=== PATIENT | male | born 1945 | race Caucasian/White ===

== ENCOUNTER 2021-02-06 08:00 | Outpatient (RCR) | payer OTHER, SELFPAY | END 2021-02-08 23:59 | disposition home or self-care (01) | LOC: CR 08:00 | PROVIDERS: Visit Provider Family Medicine | DX: Z51.89 Encounter for other specified aftercare (principal); I25.2 Old myocardial infarction; Z95.5 Presence of coronary angioplasty implant and graft | CPT/HCPCS: S9472 ==

== ENCOUNTER 2021-03-11 08:00 | Outpatient (RCR) | payer OTHER, SELFPAY | END 2021-03-11 23:59 | disposition home or self-care (01) | LOC: CR 08:00 | PROVIDERS: Visit Provider Family Medicine | DX: Z51.89 Encounter for other specified aftercare (principal); I25.2 Old myocardial infarction; Z95.5 Presence of coronary angioplasty implant and graft | CPT/HCPCS: S9472 ==

== ENCOUNTER 2021-04-08 08:00 | Outpatient (RCR) | payer OTHER, SELFPAY | END 2021-04-08 23:59 | disposition home or self-care (01) | LOC: CR 08:00 | PROVIDERS: Visit Provider Family Medicine | DX: Z51.89 Encounter for other specified aftercare (principal); I25.2 Old myocardial infarction; Z95.5 Presence of coronary angioplasty implant and graft | CPT/HCPCS: S9472 ==

== ENCOUNTER 2021-05-06 08:00 | Outpatient (RCR) | payer OTHER, SELFPAY | END 2021-05-09 23:59 | disposition home or self-care (01) | LOC: CR 08:00 | PROVIDERS: Visit Provider Family Medicine | DX: Z51.89 Encounter for other specified aftercare (principal); I25.2 Old myocardial infarction; Z95.5 Presence of coronary angioplasty implant and graft | CPT/HCPCS: S9472 ==

== ENCOUNTER 2021-06-06 08:00 | Outpatient (RCR) | payer SELFPAY ==
[2021-05-14 08:10] VITALS: BP 144/65; PULSE 54
[2021-05-16 08:06] VITALS: BP 134/58; PULSE 47
[2021-05-21 08:06] VITALS: BP 159/58; PULSE 52; O2SAT 98
[2021-05-23 08:17] VITALS: BP 162/59; PULSE 44
[2021-05-28 13:16] VITALS: BP 150/60; PULSE 45
[2021-05-30 08:09] VITALS: BP 138/52; PULSE 46; O2SAT 97
[2021-06-04 08:06] VITALS: BP 135/59; PULSE 46
[2021-06-06 08:13] VITALS: BP 137/58; PULSE 45
== END 2021-06-08 23:59 | disposition home or self-care (01) ==
LOC: CR 08:00
PROVIDERS: Visit Provider Internal Medicine Cardiovascular Disease
DX: R69 Illness, unspecified (principal)

== ENCOUNTER 2021-07-09 08:23 | Outpatient (RCR) | payer SELFPAY ==
[2021-06-09 00:07] VITALS: BP 137/58; PULSE 45
[2021-06-11 08:18] VITALS: BP 128/53; PULSE 42
[2021-06-13 08:10] VITALS: BP 125/51; PULSE 47
[2021-06-18 08:11] VITALS: BP 149/62; PULSE 45
[2021-06-20 08:00] VITALS: BP 141/61; PULSE 45
[2021-06-25 09:58] VITALS: BP 130/58; PULSE 49
[2021-07-02 08:13] VITALS: BP 147/62; PULSE 48
[2021-07-04 08:48] VITALS: BP 140/61; PULSE 53
[2021-07-09 08:00] VITALS: BP 139/59; PULSE 45
== END 2021-07-09 23:59 | disposition home or self-care (01) ==
LOC: CR 08:23
PROVIDERS: Visit Provider Internal Medicine Cardiovascular Disease
DX: R69 Illness, unspecified (principal)

== ENCOUNTER 2021-09-05 08:31 | Outpatient (RCR) | payer SELFPAY ==
[2021-08-13 08:26] VITALS: BP 138/57; PULSE 52
[2021-08-15 08:35] VITALS: BP 146/60; PULSE 47
[2021-08-20 08:41] VITALS: BP 138/54; PULSE 53
[2021-08-22 08:53] VITALS: BP 123/57; PULSE 52
[2021-09-03 08:09] VITALS: BP 113/70; PULSE 51
[2021-09-05 08:05] VITALS: BP 129/59; PULSE 51
== END 2021-09-08 23:59 | disposition home or self-care (01) ==
LOC: CR 08:31
PROVIDERS: Visit Provider Internal Medicine Cardiovascular Disease
DX: R69 Illness, unspecified (principal)

== ENCOUNTER 2021-10-08 08:00 | Outpatient (RCR) | payer SELFPAY ==
[2021-09-09 00:02] VITALS: BP 129/59; PULSE 51
[2021-09-12 08:03] VITALS: BP 128/71; PULSE 54
[2021-09-17 11:35] VITALS: BP 155/68; PULSE 43
[2021-09-19 13:13] VITALS: BP 126/59; PULSE 48
[2021-09-24 08:50] VITALS: BP 154/54; PULSE 45
[2021-09-26 08:05] VITALS: BP 150/57; PULSE 47
[2021-10-01 08:00] VITALS: BP 132/45; PULSE 45
[2021-10-03 07:59] VITALS: BP 159/56; PULSE 44
[2021-10-08 08:24] VITALS: BP 146/69; PULSE 45
== END 2021-10-09 23:59 | disposition home or self-care (01) ==
LOC: CR 08:00
PROVIDERS: Visit Provider Internal Medicine Cardiovascular Disease
DX: R69 Illness, unspecified (principal)

== ENCOUNTER 2021-11-07 08:15 | Outpatient (RCR) | payer SELFPAY ==
[2021-10-10 00:02] VITALS: BP 146/69; PULSE 45
[2021-10-10 08:17] VITALS: BP 147/70; PULSE 44
[2021-10-17 07:58] VITALS: BP 143/48; PULSE 50
[2021-10-22 08:02] VITALS: BP 121/69; PULSE 46
[2021-10-24 08:02] VITALS: BP 162/72; PULSE 45
[2021-10-29 08:03] VITALS: BP 151/71; PULSE 49
[2021-10-31 07:52] VITALS: BP 137/51; PULSE 45
[2021-11-05 08:12] VITALS: BP 142/57; PULSE 46
[2021-11-07 08:02] VITALS: BP 135/50; PULSE 46
== END 2021-11-08 23:59 | disposition home or self-care (01) ==
LOC: CR 08:15
PROVIDERS: Visit Provider Internal Medicine Cardiovascular Disease
DX: R69 Illness, unspecified (principal)

== ENCOUNTER 2021-12-05 08:00 | Outpatient (RCR) | payer SELFPAY ==
[2021-11-09 00:03] VITALS: BP 135/50; PULSE 46
[2021-11-12 08:04] VITALS: BP 131/54; PULSE 44
[2021-11-14 08:00] VITALS: BP 138/53; PULSE 40
[2021-11-19 07:57] VITALS: BP 153/52; PULSE 46
[2021-11-21 08:05] VITALS: BP 140/47; PULSE 44
[2021-11-26 08:00] VITALS: BP 151/61; PULSE 45
[2021-11-28 08:17] VITALS: BP 132/49; PULSE 46
[2021-12-03 08:28] VITALS: BP 132/49; PULSE 46
[2021-12-05 08:21] VITALS: BP 141/52; PULSE 45
== END 2021-12-09 23:59 | disposition home or self-care (01) ==
LOC: CR 08:00
PROVIDERS: Visit Provider Internal Medicine Cardiovascular Disease
DX: R69 Illness, unspecified (principal)
CPT/HCPCS: S9472

== ENCOUNTER 2022-01-07 08:00 | Outpatient (RCR) | payer SELFPAY ==
[2021-12-10 00:03] VITALS: BP 141/52; PULSE 45
[2021-12-10 11:30] VITALS: BP 143/42; PULSE 44
[2021-12-12 08:03] VITALS: BP 137/51; PULSE 41
[2021-12-17 08:00] VITALS: BP 145/52; PULSE 41
[2021-12-19 08:07] VITALS: BP 142/50; PULSE 43
[2021-12-24 09:02] VITALS: BP 145/51; PULSE 46
[2021-12-26 07:59] VITALS: BP 130/47; PULSE 46
[2021-12-31 08:05] VITALS: BP 131/42; PULSE 45
[2022-01-07 08:33] VITALS: BP 135/50; PULSE 47
== END 2022-01-08 23:59 | disposition home or self-care (01) ==
LOC: CR 08:00
PROVIDERS: Visit Provider Internal Medicine Cardiovascular Disease
DX: R69 Illness, unspecified (principal)

== ENCOUNTER 2022-02-06 08:28 | Outpatient (RCR) | payer SELFPAY ==
[2022-01-09 00:04] VITALS: BP 135/50; PULSE 47
[2022-01-09 08:56] VITALS: BP 129/50; PULSE 48
[2022-01-16 08:00] VITALS: BP 141/54; PULSE 47
[2022-01-21 08:31] VITALS: BP 124/53; PULSE 49
[2022-01-23 07:57] VITALS: BP 115/67; PULSE 67
[2022-01-30 08:08] VITALS: BP 138/52; PULSE 45
[2022-02-04 08:08] VITALS: BP 153/58; PULSE 51
[2022-02-06 08:43] VITALS: BP 145/55; PULSE 44
== END 2022-02-08 23:59 | disposition home or self-care (01) ==
LOC: CR 08:28
PROVIDERS: Visit Provider Internal Medicine Cardiovascular Disease
DX: R69 Illness, unspecified (principal)

== ENCOUNTER 2022-03-11 08:00 | Outpatient (RCR) | payer SELFPAY ==
[2022-02-09 00:02] VITALS: BP 145/55; PULSE 44
[2022-02-11 08:00] VITALS: BP 149/51; PULSE 45
[2022-02-13 07:52] VITALS: BP 151/51; PULSE 46
[2022-02-18 08:07] VITALS: BP 136/52; PULSE 47
[2022-02-20 09:31] VITALS: BP 125/49; PULSE 46
[2022-02-25 08:12] VITALS: BP 135/54; PULSE 46
[2022-02-27 08:01] VITALS: BP 135/47; PULSE 49
[2022-03-04 08:21] VITALS: BP 149/55; PULSE 50
[2022-03-06 08:24] VITALS: BP 123/43; PULSE 59
[2022-03-11 08:31] VITALS: BP 130/50; PULSE 51
== END 2022-03-11 23:59 | disposition home or self-care (01) ==
LOC: CR 08:00
PROVIDERS: Visit Provider Internal Medicine Cardiovascular Disease
DX: R69 Illness, unspecified (principal)

== ENCOUNTER 2022-04-08 08:06 | Outpatient (RCR) | payer SELFPAY ==
[2022-03-13 08:19] VITALS: BP 121/46; PULSE 44
[2022-03-18 14:07] VITALS: BP 152/57; PULSE 51
[2022-03-20 08:10] VITALS: BP 137/52; PULSE 47
[2022-03-25 08:08] VITALS: BP 141/53; PULSE 48
[2022-03-27 08:05] VITALS: BP 139/59; PULSE 49
[2022-04-01 08:15] VITALS: BP 127/54; PULSE 52
[2022-04-03 08:00] VITALS: BP 131/54; PULSE 52
[2022-04-08 08:18] VITALS: BP 130/49; PULSE 49
== END 2022-04-08 23:59 | disposition home or self-care (01) ==
LOC: CR 08:06
PROVIDERS: Visit Provider Internal Medicine Cardiovascular Disease
DX: R69 Illness, unspecified (principal)

== ENCOUNTER 2022-05-08 08:04 | Outpatient (RCR) | payer SELFPAY ==
[2022-04-09 00:08] VITALS: BP 130/49; PULSE 49
[2022-04-10 08:23] VITALS: BP 135/50; PULSE 48
[2022-04-15 08:16] VITALS: BP 131/55; PULSE 48
[2022-05-01 08:12] VITALS: BP 130/53; PULSE 48
[2022-05-06 08:44] VITALS: BP 137/54; PULSE 53
[2022-05-08 08:08] VITALS: BP 137/56; PULSE 50
[2022-05-13 08:01] VITALS: BP 137/56; PULSE 49
== END 2022-05-09 23:59 | disposition home or self-care (01) ==
LOC: CR 08:04
PROVIDERS: Visit Provider Internal Medicine Cardiovascular Disease

== ENCOUNTER 2022-06-05 08:08 | Outpatient (RCR) | payer SELFPAY ==
[2022-05-10 00:17] VITALS: BP 137/56; PULSE 50
[2022-05-15 08:03] VITALS: BP 122/49; PULSE 48
[2022-05-27 08:05] VITALS: BP 131/51; PULSE 55
[2022-06-03 08:24] VITALS: BP 143/59; PULSE 51
[2022-06-05 08:13] VITALS: BP 143/59; PULSE 51
== END 2022-06-08 23:59 | disposition home or self-care (01) ==
LOC: CR 08:08
PROVIDERS: Visit Provider Internal Medicine Cardiovascular Disease
DX: R69 Illness, unspecified (principal)

== ENCOUNTER 2022-06-26 08:06 | Outpatient (RCR) | payer SELFPAY ==
[2022-06-09 00:07] VITALS: BP 143/59; PULSE 51
[2022-06-10 08:10] VITALS: BP 135/53; PULSE 49
[2022-06-12 08:24] VITALS: BP 154/76; PULSE 49
[2022-06-17 08:09] VITALS: BP 155/58; PULSE 53
[2022-06-19 08:06] VITALS: BP 138/54; PULSE 50
[2022-06-24 08:31] VITALS: BP 146/57; PULSE 49
[2022-06-26 08:12] VITALS: BP 148/60; PULSE 51
== END 2022-07-09 23:59 | disposition home or self-care (01) ==
LOC: CR 08:06
PROVIDERS: Visit Provider Internal Medicine Cardiovascular Disease

== ENCOUNTER 2022-08-07 08:05 | Outpatient (RCR) | payer SELFPAY ==
[2022-07-10 00:05] VITALS: BP 148/60; PULSE 51
[2022-07-31 08:11] VITALS: BP 146/62; PULSE 49
[2022-08-05 08:31] VITALS: BP 122/55; PULSE 45
[2022-08-07 10:37] VITALS: BP 133/53; PULSE 48
== END 2022-08-08 23:59 | disposition home or self-care (01) ==
LOC: CR 08:05
PROVIDERS: Visit Provider Internal Medicine Cardiovascular Disease
DX: R69 Illness, unspecified (principal)

== ENCOUNTER 2022-09-02 07:57 | Outpatient (RCR) | payer SELFPAY ==
[2022-08-09 00:13] VITALS: BP 133/53; PULSE 48
[2022-08-14 08:06] VITALS: BP 141/72; PULSE 42
[2022-08-19 08:10] VITALS: BP 136/53; PULSE 46
[2022-08-26 08:19] VITALS: BP 149/63; PULSE 43
[2022-08-28 08:07] VITALS: BP 141/55; PULSE 47
[2022-09-02 08:21] VITALS: BP 140/56; PULSE 42
== END 2022-09-08 23:59 | disposition home or self-care (01) ==
LOC: CR 07:57
PROVIDERS: Visit Provider Internal Medicine Cardiovascular Disease
DX: R69 Illness, unspecified (principal)

== ENCOUNTER 2022-10-09 08:07 | Outpatient (RCR) | payer SELFPAY ==
[2022-09-09 00:13] VITALS: BP 140/56; PULSE 42
[2022-09-16 08:17] VITALS: BP 136/54; PULSE 48
[2022-09-18 09:47] VITALS: BP 135/56; PULSE 59
[2022-09-23 08:29] VITALS: BP 156/60; PULSE 47
[2022-09-23 08:50] VITALS: BP 135/60
[2022-09-25 08:33] VITALS: BP 132/56; PULSE 47
[2022-10-07 08:17] VITALS: BP 129/55; PULSE 53
[2022-10-09 08:13] VITALS: BP 143/53; PULSE 44
== END 2022-10-09 23:59 | disposition home or self-care (01) ==
LOC: CR 08:07
PROVIDERS: Visit Provider Internal Medicine Cardiovascular Disease
DX: R69 Illness, unspecified (principal)

== ENCOUNTER 2022-11-04 07:46 | Outpatient (RCR) | payer SELFPAY ==
[2022-10-10 00:06] VITALS: BP 143/53; PULSE 44
[2022-10-14 08:13] VITALS: BP 121/52; PULSE 43
[2022-10-16 08:24] VITALS: BP 140/58; PULSE 42
[2022-10-16 09:00] VITALS: BP 129/53
[2022-10-21 08:08] VITALS: BP 138/60; PULSE 46
[2022-10-23 10:22] VITALS: BP 114/56; PULSE 41
[2022-10-28 08:09] VITALS: BP 131/61; PULSE 53
[2022-10-30 08:11] VITALS: BP 135/53; PULSE 43
[2022-11-04 08:23] VITALS: BP 121/55; PULSE 46
[2022-11-06 08:28] VITALS: BP 163/59; PULSE 49
[2022-11-13 08:26] VITALS: BP 129/52; PULSE 43
== END 2022-11-08 23:59 | disposition home or self-care (01) ==
LOC: CR 07:46
PROVIDERS: Visit Provider Internal Medicine Cardiovascular Disease
DX: R69 Illness, unspecified (principal)

== ENCOUNTER 2022-12-09 08:03 | Outpatient (RCR) | payer SELFPAY ==
[2022-11-09 00:13] VITALS: BP 163/59; PULSE 49
[2022-11-11 08:10] VITALS: BP 147/59; PULSE 40
[2022-11-18 08:21] VITALS: BP 138/54; PULSE 44
[2022-11-20 08:47] VITALS: BP 140/50; PULSE 44
[2022-11-25 08:05] VITALS: BP 150/59; PULSE 42
[2022-11-25 08:43] VITALS: BP 124/56; PULSE 69
[2022-11-27 08:26] VITALS: BP 147/58; PULSE 44
[2022-12-02 08:39] VITALS: BP 136/52; PULSE 46
[2022-12-04 07:58] VITALS: BP 124/54; PULSE 50
[2022-12-09 08:15] VITALS: BP 132/53; PULSE 47
== END 2022-12-09 23:59 | disposition home or self-care (01) ==
LOC: CR 08:03
PROVIDERS: Visit Provider Internal Medicine Cardiovascular Disease
DX: R69 Illness, unspecified (principal)

== ENCOUNTER 2023-01-08 08:00 | Outpatient (RCR) | payer SELFPAY ==
[2022-12-10 00:08] VITALS: BP 163/59; PULSE 49
[2022-12-11 08:08] VITALS: BP 135/54; PULSE 45
[2022-12-16 08:08] VITALS: BP 141/60; PULSE 47
[2022-12-25 08:00] VITALS: BP 135/52; PULSE 44
[2022-12-30 08:18] VITALS: BP 124/58; PULSE 46
[2023-01-06 08:14] VITALS: BP 115/52; PULSE 50
[2023-01-08 08:14] VITALS: BP 128/48; PULSE 47
== END 2023-01-08 23:59 | disposition home or self-care (01) ==
LOC: CR 08:00
PROVIDERS: Visit Provider Internal Medicine Cardiovascular Disease
DX: R69 Illness, unspecified (principal)

== ENCOUNTER 2023-02-03 08:46 | Outpatient (RCR) | payer SELFPAY ==
[2023-01-09 00:06] VITALS: BP 163/59; PULSE 49
[2023-01-13 08:00] VITALS: BP 128/53; PULSE 49
[2023-01-15 08:14] VITALS: BP 111/53; PULSE 51
[2023-01-15 08:59] VITALS: BP 131/68; PULSE 82
[2023-01-20 08:15] VITALS: BP 116/49; PULSE 41
[2023-01-22 11:07] VITALS: BP 129/51; PULSE 41
[2023-02-03 08:48] VITALS: BP 142/59; PULSE 42
== END 2023-02-08 23:59 | disposition home or self-care (01) ==
LOC: CR 08:46
PROVIDERS: Visit Provider Internal Medicine Cardiovascular Disease
DX: R69 Illness, unspecified (principal)

== ENCOUNTER 2023-03-10 07:58 | Outpatient (RCR) | payer SELFPAY ==
[2023-02-09 00:17] VITALS: BP 163/59; PULSE 49
[2023-02-10 08:05] VITALS: BP 131/58; PULSE 43
[2023-02-12 08:05] VITALS: BP 118/56; PULSE 47
[2023-02-17 08:48] VITALS: BP 122/49; PULSE 46
[2023-02-19 11:05] VITALS: BP 133/53; PULSE 50
[2023-02-26 08:41] VITALS: BP 142/53; PULSE 44
[2023-03-03 08:14] VITALS: BP 131/55; PULSE 42
[2023-03-05 08:16] VITALS: BP 125/62; PULSE 48
[2023-03-10 08:04] VITALS: BP 138/57; PULSE 46
== END 2023-03-11 23:59 | disposition home or self-care (01) ==
LOC: CR 07:58
PROVIDERS: Visit Provider Internal Medicine Interventional Cardiology
DX: R69 Illness, unspecified (principal)

== ENCOUNTER 2023-04-09 08:09 | Outpatient (RCR) | payer SELFPAY ==
[2023-03-12 00:23] VITALS: BP 163/59; PULSE 49
[2023-03-12 08:10] VITALS: BP 120/63; PULSE 49
[2023-03-19 09:46] VITALS: BP 123/54; PULSE 41
[2023-03-24 08:09] VITALS: BP 136/57; PULSE 42
[2023-03-26 08:03] VITALS: BP 135/58; O2SAT 98
[2023-03-31 08:10] VITALS: BP 126/56; PULSE 44
[2023-04-02 08:05] VITALS: BP 128/58; PULSE 40
[2023-04-07 08:12] VITALS: BP 142/51; PULSE 48
[2023-04-09 08:14] VITALS: BP 129/54; PULSE 40
== END 2023-04-09 23:59 | disposition home or self-care (01) ==
LOC: CR 08:09
PROVIDERS: Visit Provider Internal Medicine Cardiovascular Disease
DX: R69 Illness, unspecified (principal)

== ENCOUNTER 2023-04-30 08:15 | Outpatient (RCR) | payer SELFPAY ==
[2023-04-10 00:08] VITALS: BP 163/59; PULSE 49
[2023-04-14 08:25] VITALS: BP 119/53; PULSE 53
[2023-04-16 08:18] VITALS: BP 128/52; PULSE 43
[2023-04-21 08:16] VITALS: BP 149/68; PULSE 49
[2023-04-23 08:00] VITALS: BP 122/50; PULSE 46
[2023-04-28 08:14] VITALS: BP 135/53; PULSE 42
[2023-04-30 08:43] VITALS: BP 129/36; PULSE 45
== END 2023-05-10 23:59 | disposition home or self-care (01) ==
LOC: CR 08:15
PROVIDERS: Visit Provider Internal Medicine Cardiovascular Disease
DX: R69 Illness, unspecified (principal)

== ENCOUNTER 2023-06-09 08:00 | Outpatient (RCR) | payer SELFPAY ==
[2023-05-12 09:22] VITALS: BP 139/60; PULSE 41
[2023-05-26 08:09] VITALS: BP 132/60; PULSE 44
[2023-05-28 08:09] VITALS: BP 147/56; PULSE 46
[2023-06-02 08:13] VITALS: BP 148/57; PULSE 65
[2023-06-04 08:05] VITALS: BP 151/55; PULSE 44
[2023-06-09 08:03] VITALS: BP 137/53; PULSE 42
== END 2023-06-09 23:59 | disposition home or self-care (01) ==
LOC: CR 08:00
PROVIDERS: Visit Provider Internal Medicine Cardiovascular Disease
DX: R69 Illness, unspecified (principal)

== ENCOUNTER 2023-07-09 08:05 | Outpatient (RCR) | payer SELFPAY ==
[2023-06-10 00:28] VITALS: BP 137/53; PULSE 42
[2023-06-11 08:10] VITALS: BP 140/51; PULSE 43; O2SAT 98
[2023-06-16 09:05] VITALS: BP 150/55; PULSE 54
[2023-06-18 10:33] VITALS: BP 151/54; PULSE 44
[2023-06-23 08:11] VITALS: BP 133/49; PULSE 41
[2023-06-25 08:00] VITALS: BP 130/48; PULSE 45
[2023-06-30 08:13] VITALS: BP 126/49; PULSE 41
[2023-07-02 08:19] VITALS: BP 126/60; PULSE 43
[2023-07-07 08:26] VITALS: BP 121/55; PULSE 41
[2023-07-09 08:23] VITALS: BP 146/50; PULSE 42
== END 2023-07-10 23:59 | disposition home or self-care (01) ==
LOC: CR 08:05
PROVIDERS: Visit Provider Internal Medicine Cardiovascular Disease
DX: R69 Illness, unspecified (principal)

== ENCOUNTER 2023-08-06 08:27 | Outpatient (RCR) | payer SELFPAY ==
[2023-07-11 00:27] VITALS: BP 137/53; PULSE 42
[2023-07-14 08:19] VITALS: BP 125/48; PULSE 39
[2023-07-16 08:11] VITALS: BP 123/59; PULSE 40
[2023-07-21 08:38] VITALS: BP 131/56; PULSE 48
[2023-07-28 08:21] VITALS: BP 133/52; PULSE 42
[2023-07-30 08:14] VITALS: BP 121/60; PULSE 40
[2023-08-04 08:18] VITALS: BP 148/53; PULSE 42
[2023-08-06 09:15] VITALS: BP 136/57; PULSE 46
== END 2023-08-09 23:59 | disposition home or self-care (01) ==
LOC: CR 08:27
PROVIDERS: Visit Provider Internal Medicine Cardiovascular Disease
DX: R69 Illness, unspecified (principal)

== ENCOUNTER 2023-09-08 08:00 | Outpatient (RCR) | payer SELFPAY ==
[2023-08-10 00:26] VITALS: BP 137/53; PULSE 42
[2023-08-11 08:13] VITALS: BP 154/56; PULSE 40
[2023-08-18 08:22] VITALS: BP 127/44; PULSE 42; O2SAT 98
[2023-08-25 07:46] VITALS: BP 127/53; PULSE 42
[2023-08-27 08:23] VITALS: BP 136/52; PULSE 42
[2023-09-01 08:07] VITALS: BP 143/54; PULSE 40
[2023-09-03 08:00] VITALS: BP 139/50; PULSE 45
[2023-09-08 08:00] VITALS: BP 134/52; PULSE 42
== END 2023-09-09 23:59 | disposition home or self-care (01) ==
LOC: CR 08:00
PROVIDERS: Visit Provider Internal Medicine Cardiovascular Disease
DX: R69 Illness, unspecified (principal)

== ENCOUNTER 2023-10-08 08:09 | Outpatient (RCR) | payer SELFPAY ==
[2023-09-10 00:32] VITALS: BP 137/53; PULSE 42
[2023-09-10 07:58] VITALS: BP 126/50; PULSE 41
[2023-09-15 08:15] VITALS: BP 147/51; PULSE 40
[2023-09-17 10:18] VITALS: BP 149/51; PULSE 49
[2023-09-22 08:22] VITALS: BP 157/67; PULSE 40
[2023-09-24 08:04] VITALS: BP 140/57; PULSE 47
[2023-09-29 08:50] VITALS: BP 164/59; PULSE 44
[2023-10-01 08:14] VITALS: BP 153/59; PULSE 43
[2023-10-06 08:15] VITALS: BP 146/51; PULSE 40
[2023-10-08 08:09] VITALS: BP 148/54; PULSE 41
== END 2023-10-10 23:59 | disposition home or self-care (01) ==
LOC: CR 08:09
PROVIDERS: Visit Provider Internal Medicine Cardiovascular Disease
DX: R69 Illness, unspecified (principal)

== ENCOUNTER 2023-11-05 08:08 | Outpatient (RCR) | payer SELFPAY ==
[2023-10-11 00:12] VITALS: BP 137/53; PULSE 42
[2023-10-13 08:17] VITALS: BP 150/53; PULSE 45
[2023-10-15 08:21] VITALS: BP 148/62; PULSE 44
[2023-10-20 08:27] VITALS: BP 153/57; PULSE 45
[2023-10-22 09:18] VITALS: BP 137/55; PULSE 42
[2023-10-27 08:16] VITALS: BP 157/59; PULSE 41
[2023-10-29 09:19] VITALS: BP 144/50; PULSE 40
[2023-11-03 08:21] VITALS: BP 129/50; PULSE 41
[2023-11-05 08:21] VITALS: BP 130/56; PULSE 41
== END 2023-11-09 23:59 | disposition home or self-care (01) ==
LOC: CR 08:08
PROVIDERS: Visit Provider Internal Medicine Cardiovascular Disease
DX: R69 Illness, unspecified (principal)

== ENCOUNTER 2023-12-10 07:56 | Outpatient (RCR) | payer SELFPAY ==
[2023-11-10 00:09] VITALS: BP 137/53; PULSE 42
[2023-11-10 07:48] VITALS: BP 133/49; PULSE 43
[2023-11-12 08:04] VITALS: BP 138/59; PULSE 48; O2SAT 99
[2023-11-17 08:29] VITALS: BP 154/57; PULSE 42
[2023-11-19 09:30] VITALS: BP 146/57; PULSE 43
[2023-11-24 08:45] VITALS: BP 145/56; PULSE 43
[2023-11-26 07:56] VITALS: BP 139/56; PULSE 42; O2SAT 99
[2023-12-01 08:26] VITALS: BP 146/56; PULSE 41
[2023-12-03 07:59] VITALS: BP 136/50; PULSE 41; O2SAT 99
[2023-12-08 08:57] VITALS: BP 153/60; PULSE 42
[2023-12-10 08:14] VITALS: BP 129/56; PULSE 39
== END 2023-12-10 23:59 | disposition home or self-care (01) ==
LOC: CR 07:56
PROVIDERS: Visit Provider Internal Medicine Cardiovascular Disease
DX: R69 Illness, unspecified (principal)

== ENCOUNTER 2024-01-05 08:16 | Outpatient (RCR) | payer SELFPAY ==
[2023-12-11 00:28] VITALS: BP 137/53; PULSE 42
[2023-12-15 08:12] VITALS: BP 147/60; PULSE 39
[2023-12-17 08:10] VITALS: BP 145/55; PULSE 45
[2023-12-22 08:04] VITALS: BP 131/56; PULSE 41
[2023-12-24 09:05] VITALS: BP 134/60; PULSE 42
[2023-12-29 08:41] VITALS: BP 158/56; PULSE 44
[2023-12-31 08:05] VITALS: BP 129/54; PULSE 40; O2SAT 98
[2024-01-05 08:18] VITALS: BP 140/61; PULSE 42
== END 2024-01-09 23:59 | disposition home or self-care (01) ==
LOC: CR 08:16
PROVIDERS: Visit Provider Internal Medicine Cardiovascular Disease
DX: R69 Illness, unspecified (principal)

== ENCOUNTER 2024-02-04 07:56 | Outpatient (RCR) | payer SELFPAY ==
[2024-01-10 00:11] VITALS: BP 137/53; PULSE 42
[2024-01-12 08:13] VITALS: BP 136/78; PULSE 86
[2024-01-14 08:06] VITALS: BP 136/54; PULSE 45
[2024-01-21 12:33] VITALS: BP 131/59; PULSE 44
[2024-01-26 08:09] VITALS: BP 133/55; PULSE 43
[2024-01-28 08:06] VITALS: BP 129/59; PULSE 42
[2024-02-02 08:36] VITALS: BP 159/66; PULSE 48
[2024-02-04 08:00] VITALS: BP 134/52; PULSE 40; O2SAT 99
== END 2024-02-09 23:59 | disposition home or self-care (01) ==
LOC: CR 07:56
PROVIDERS: Visit Provider Internal Medicine Cardiovascular Disease
DX: R69 Illness, unspecified (principal)

== ENCOUNTER 2024-03-10 07:53 | Outpatient (RCR) | payer SELFPAY ==
[2024-02-10 00:21] VITALS: BP 137/53; PULSE 42
[2024-02-11 08:16] VITALS: BP 134/51; PULSE 42
[2024-02-16 08:08] VITALS: BP 153/53; PULSE 44
[2024-02-18 08:19] VITALS: BP 151/54; PULSE 44
[2024-02-23 08:15] VITALS: BP 146/57; PULSE 43
[2024-02-25 08:32] VITALS: BP 148/55; PULSE 41
[2024-03-03 08:08] VITALS: BP 149/55; PULSE 44
[2024-03-08 08:20] VITALS: BP 128/57; PULSE 46
[2024-03-10 08:02] VITALS: BP 116/54; PULSE 51; O2SAT 97
== END 2024-03-11 23:59 | disposition home or self-care (01) ==
LOC: CR 07:53
PROVIDERS: Visit Provider Internal Medicine Cardiovascular Disease
DX: R69 Illness, unspecified (principal)

== ENCOUNTER 2024-04-07 08:07 | Outpatient (RCR) | payer SELFPAY ==
[2024-03-12 00:19] VITALS: BP 137/53; PULSE 42
[2024-03-15 08:21] VITALS: BP 126/51; PULSE 47
[2024-03-17 08:18] VITALS: BP 145/56; PULSE 41
[2024-03-22 08:12] VITALS: BP 151/61; PULSE 42
[2024-03-24 08:00] VITALS: BP 150/59; PULSE 46; O2SAT 97
[2024-03-29 09:22] VITALS: BP 137/57; PULSE 44
[2024-03-31 08:07] VITALS: BP 132/54; PULSE 39
[2024-04-05 08:13] VITALS: BP 121/54; PULSE 41
[2024-04-07 08:13] VITALS: BP 146/59; PULSE 41; O2SAT 97
== END 2024-04-08 23:59 | disposition home or self-care (01) ==
LOC: CR 08:07
PROVIDERS: Visit Provider Internal Medicine Cardiovascular Disease
DX: R69 Illness, unspecified (principal)

== ENCOUNTER 2024-05-05 08:13 | Outpatient (RCR) | payer SELFPAY ==
[2024-04-09 00:19] VITALS: BP 137/53; PULSE 42
[2024-04-14 08:22] VITALS: BP 131/60; PULSE 42
[2024-04-19 08:30] VITALS: BP 119/53; PULSE 40
[2024-04-26 08:28] VITALS: BP 135/61; PULSE 45
[2024-05-03 08:43] VITALS: BP 143/58; PULSE 41
[2024-05-05 08:00] VITALS: BP 125/56; PULSE 42; O2SAT 97
== END 2024-05-09 23:59 | disposition home or self-care (01) ==
LOC: CR 08:13
PROVIDERS: Visit Provider Internal Medicine Cardiovascular Disease
DX: R69 Illness, unspecified (principal)

== ENCOUNTER 2024-06-07 08:15 | Outpatient (RCR) | payer SELFPAY ==
[2024-05-10 00:19] VITALS: BP 137/53; PULSE 42
[2024-05-10 08:23] VITALS: BP 123/52; PULSE 51
[2024-05-12 08:00] VITALS: BP 126/58; PULSE 47; O2SAT 98
[2024-05-17 08:20] VITALS: BP 148/56; PULSE 47
[2024-05-19 08:06] VITALS: BP 125/56; PULSE 51; O2SAT 97
[2024-06-07 08:22] VITALS: BP 138/58; PULSE 45
== END 2024-06-08 23:59 | disposition home or self-care (01) ==
LOC: CR 08:15
PROVIDERS: Visit Provider Internal Medicine Cardiovascular Disease
DX: R69 Illness, unspecified (principal)

== ENCOUNTER 2024-07-07 08:18 | Outpatient (RCR) | payer SELFPAY ==
[2024-06-09 00:09] VITALS: BP 137/53; PULSE 42
[2024-06-09 08:45] VITALS: BP 155/56; PULSE 46
[2024-06-14 08:20] VITALS: BP 137/55
[2024-06-16 08:14] VITALS: BP 132/60; PULSE 48
[2024-06-28 08:06] VITALS: BP 134/62; PULSE 49
[2024-07-05 08:08] VITALS: BP 135/55; PULSE 41
[2024-07-07 09:30] VITALS: BP 138/52; PULSE 59
== END 2024-07-09 23:59 | disposition home or self-care (01) ==
LOC: CR 08:18
PROVIDERS: Visit Provider Internal Medicine Cardiovascular Disease
DX: R69 Illness, unspecified (principal)

== ENCOUNTER 2024-08-04 08:00 | Outpatient (RCR) | payer SELFPAY ==
[2024-07-10 00:07] VITALS: BP 137/53; PULSE 42
[2024-07-12 08:33] VITALS: BP 134/54; PULSE 46
[2024-07-19 09:20] VITALS: BP 128/55; PULSE 46
[2024-07-21 08:17] VITALS: BP 147/54; PULSE 42
[2024-07-26 08:36] VITALS: BP 150/56; PULSE 44
[2024-08-02 08:20] VITALS: BP 129/50; PULSE 43
[2024-08-04 08:05] VITALS: BP 134/54; PULSE 45
== END 2024-08-08 23:59 | disposition home or self-care (01) ==
LOC: CR 08:00
PROVIDERS: Visit Provider Internal Medicine Cardiovascular Disease
DX: R69 Illness, unspecified (principal)

== ENCOUNTER 2024-09-08 08:00 | Outpatient (RCR) | payer SELFPAY ==
[2024-08-09 00:18] VITALS: BP 134/54; PULSE 45
[2024-08-09 08:22] VITALS: BP 148/53; PULSE 48
[2024-08-11 08:20] VITALS: BP 138/51; PULSE 40
[2024-08-16 09:14] VITALS: BP 151/53; PULSE 43
[2024-08-18 08:29] VITALS: BP 155/62; PULSE 39
[2024-08-23 08:30] VITALS: BP 139/54; PULSE 40
[2024-08-25 08:09] VITALS: BP 136/53; PULSE 38; O2SAT 97
[2024-09-01 08:35] VITALS: BP 130/56; PULSE 42
[2024-09-06 08:32] VITALS: BP 140/53; PULSE 38
[2024-09-08 08:25] VITALS: BP 133/65; PULSE 70
== END 2024-09-08 23:59 | disposition home or self-care (01) ==
LOC: CR 08:00
PROVIDERS: Visit Provider Internal Medicine Cardiovascular Disease
DX: R69 Illness, unspecified (principal)

== ENCOUNTER 2024-10-06 08:00 | Outpatient (RCR) | payer SELFPAY ==
[2024-09-09 00:21] VITALS: BP 133/65; PULSE 70
[2024-09-13 08:17] VITALS: BP 140/52; PULSE 40
[2024-09-15 08:10] VITALS: BP 139/54; PULSE 41
[2024-09-20 08:00] VITALS: BP 126/48; PULSE 48
[2024-09-22 08:02] VITALS: BP 139/60; PULSE 44
[2024-09-27 08:38] VITALS: BP 154/60; PULSE 41
[2024-09-29 08:42] VITALS: BP 151/54; PULSE 41
[2024-10-04 08:32] VITALS: BP 159/57; PULSE 51
[2024-10-06 08:22] VITALS: BP 148/55; PULSE 43
== END 2024-10-09 23:59 | disposition home or self-care (01) ==
LOC: CR 08:00
PROVIDERS: Visit Provider Internal Medicine Cardiovascular Disease
DX: R69 Illness, unspecified (principal)

== ENCOUNTER 2024-11-08 08:00 | Outpatient (RCR) | payer SELFPAY ==
[2024-10-11 08:42] VITALS: BP 153/55; PULSE 42
[2024-10-18 08:14] VITALS: BP 141/60; PULSE 47
[2024-10-20 08:20] VITALS: BP 126/53; PULSE 41
[2024-10-25 08:28] VITALS: BP 146/63; PULSE 49
[2024-10-27 09:13] VITALS: BP 147/53; PULSE 41
[2024-11-01 08:15] VITALS: BP 137/50; PULSE 44
[2024-11-03 08:12] VITALS: BP 155/57; PULSE 43
[2024-11-08 08:07] VITALS: BP 148/56; PULSE 42
== END 2024-11-08 23:59 | disposition home or self-care (01) ==
LOC: CR 08:00
PROVIDERS: Visit Provider Internal Medicine Cardiovascular Disease
DX: R69 Illness, unspecified (principal)

== ENCOUNTER 2024-12-08 08:00 | Outpatient (RCR) | payer SELFPAY ==
[2024-11-09 00:09] VITALS: BP 148/56; PULSE 42
[2024-11-10 08:08] VITALS: BP 140/54; PULSE 42
[2024-11-22 09:24] VITALS: BP 143/56; PULSE 41
[2024-11-24 08:09] VITALS: BP 133/53; PULSE 40
[2024-11-29 08:11] VITALS: BP 134/52; PULSE 79
[2024-12-01 08:20] VITALS: BP 139/59; PULSE 48
[2024-12-06 08:46] VITALS: BP 146/55; PULSE 43
[2024-12-08 08:00] VITALS: BP 138/53; PULSE 46; O2SAT 99
== END 2024-12-09 23:59 | disposition home or self-care (01) ==
LOC: CR 08:00
PROVIDERS: Visit Provider Internal Medicine Cardiovascular Disease
DX: R69 Illness, unspecified (principal)

== ENCOUNTER 2025-01-03 08:00 | Outpatient (RCR) | payer SELFPAY ==
[2024-12-10 00:05] VITALS: BP 138/53; PULSE 46
[2024-12-15 08:14] VITALS: BP 143/54; PULSE 46
[2024-12-20 08:12] VITALS: BP 141/54; PULSE 41
[2024-12-22 08:11] VITALS: BP 136/55; PULSE 47
[2024-12-27 08:18] VITALS: BP 140/52; PULSE 44
[2024-12-29 08:16] VITALS: BP 147/58; PULSE 48
[2025-01-03 08:35] VITALS: BP 114/61; PULSE 51
== END 2025-01-08 23:59 | disposition home or self-care (01) ==
LOC: CR 08:00
PROVIDERS: Visit Provider Internal Medicine Cardiovascular Disease
DX: R69 Illness, unspecified (principal)

== ENCOUNTER 2025-02-07 08:00 | Outpatient (RCR) | payer SELFPAY ==
[2025-01-09 00:05] VITALS: BP 114/61; PULSE 51
[2025-01-10 08:11] VITALS: BP 142/57; PULSE 41
[2025-01-12 08:27] VITALS: BP 143/51; PULSE 40
[2025-01-17 08:40] VITALS: BP 146/61; PULSE 42
[2025-01-19 08:18] VITALS: BP 119/59; PULSE 49
[2025-01-24 08:18] VITALS: BP 153/59; PULSE 50
[2025-01-26 08:24] VITALS: BP 140/55; PULSE 46
[2025-01-31 08:37] VITALS: BP 142/51; PULSE 46
[2025-02-07 08:40] VITALS: BP 143/63; PULSE 46
== END 2025-02-08 23:59 | disposition home or self-care (01) ==
LOC: CR 08:00
PROVIDERS: Visit Provider Internal Medicine Cardiovascular Disease
DX: R69 Illness, unspecified (principal)